=== PATIENT | male | born 1965 | race Caucasian/White ===

== ENCOUNTER 2020-03-03 14:02 | Inpatient (IN) ==
[2020-03-03] MEDS ORDERED: Isovue-370 500 ML BOTTLE IVP ONE (15:47)
[2020-03-03 15:57] LABS: Bilirubin,Urine Negative (Negative); Blood,Urine Negative (Negative); Clarity,Urine Clear (Clear); Color,Urine Yellow (Yellow); Glucose,Urine (UA) Normal (Normal); Ketones,Urine Negative (Negative); Leukocyte Esterase,Urine Negative (Negative); Nitrite,Urine Negative (Negative); Protein,Urine Negative (Neg-Trace); Specific Gravity,Urine 1.016 (1.010-1.025); Urobilinogen,Urine Normal (Normal)
[2020-03-03 16:00] LABS: INR 1.1; Prothrombin Time 12.6 Seconds (9.4-12.1)
[2020-03-03 16:03] LABS: Activated Partial Thrombo Time 38.6 Seconds (26.0-36.0); Basophils % 0.5 %; Eosinophils # 0.2 K/mcL (0.0-0.6); Eosinophils % 3.2 %; Hematocrit 39.1 % (37.5-50.1); Hemoglobin 11.6 g/dL (12.9-16.9); Immature Granulocytes % 0.4 % (0-4); Lymphocytes # 1.7 K/mcL (0.6-4.6); Lymphocytes % 23.4 %; Mean Corpuscular HGB Conc 29.7 g/dL (31.6-35.5); Mean Corpuscular Hemoglobin 23.5 pg (28.0-33.3); Mean Corpuscular Volume 79.1 fL (83.0-100.0); Mean Platelet Volume 9.6 fL (9.4-12.4); Monocytes # 0.8 K/mcL (0.0-1.3); Monocytes % 10.7 %; Neutrophils # 4.5 K/mcL (1.6-8.9); Platelet Count 367 K/mcL (140-400); Red Blood Count 4.94 M/mcL (4.19-5.50); Red Cell Distribution Width 21.3 % (11.5-14.5); Segmented Neutrophils % 61.8 %; White Blood Count 7.3 K/mcL (4.3-11.1)
[2020-03-03 16:17] LABS: Alanine Aminotransferase 22 Units/L (7-52); Albumin 3.9 g/dL (3.5-5.7); Albumin/Globulin Ratio 1.3 (1.1-2.2); Alkaline Phosphatase 63 Units/L (34-104); Aspartate Amino Transferase 23 Units/L (13-39); BUN/Creatinine Ratio 15 (6-26); Bilirubin,Direct 0.1 mg/dL (0.0-0.2); Bilirubin,Indirect 0.2 mg/dL (0.0-1.0); Bilirubin,Total 0.3 mg/dL (0.3-1.0); Blood Urea Nitrogen 14 mg/dL (6-20); Calcium 9.2 mg/dL (8.6-10.3); Carbon Dioxide 30 mEq/L (23-29); Chloride 104 mEq/L (98-107); Glucose 99 mg/dL (70-105); Lipase 29 Units/L (11-82); Osmolality,Calculated 289 (280-300); Sodium 139 mEq/L (136-145); Total Protein 6.9 g/dL (6.4-8.9); eGFR For African Americans > 60 (> 60); eGFR For Non-African Americans > 60 (> 60)
[2020-03-03] MEDS ORDERED: Ondansetron 4 MG/2 ML VIAL IVP PRN ×2 (19:36→21:10)
[2020-03-03] MEDS ORDERED: 0.9 % Sodium Chloride 1,000 ML IVC SCH ×2 (19:45→21:10)
[2020-03-03] MEDS ORDERED: *HR* OxyCODONE Immed Rel 5 MG TABLET PO PRN (21:11)
[2020-03-03] MEDS ORDERED: Ondansetron 4 MG/2 ML VIAL IVP ONE (21:11)
[2020-03-03] MEDS ORDERED: *HR* Promethazine 25 MG/ML VIAL IVP PRN (21:11)
[2020-03-03] MEDS ORDERED: CeFAZolin Syr 3,000MG/30 ML 3,000 MG/30 ML SYRINGE IVPB ONE (21:33)
[2020-03-03] MEDS ORDERED: *HR* Heparin 5,000 UNIT/ML VIAL SQ SCH (22:00)
[2020-03-03] MEDS ORDERED: *HR* FentaNYL (PF) 100 MCG/2 ML VIAL ONE (22:01)
[2020-03-03] MEDS ORDERED: *HR* Propofol 200 MG/20 ML VIAL IVP ONE (22:02)
[2020-03-03] MEDS ORDERED: *HR* Succinylcholine 200 MG/10 ML VIAL IVP ONE (22:03)
[2020-03-03] MEDS ORDERED: Lidocaine -MPF 2% 2 ML VIAL ONE (22:03)
[2020-03-03] MEDS ORDERED: *HR* Rocuronium Bromide 50 MG/5 ML VIAL ONE ×2 (22:03→23:57)
[2020-03-03] MEDS ORDERED: Dexamethasone 4 MG/ML VIAL ONE (22:03)
[2020-03-03] MEDS ORDERED: Ondansetron 4 MG/2 ML VIAL ONE (22:03)
[2020-03-03] MEDS ORDERED: Ketorolac 30 MG/ML VIAL ONE (22:04)
[2020-03-03] MEDS ORDERED: *HR* Metoprolol 5 MG/5 ML VIAL IVP ONE (22:42)
[2020-03-04] MEDS ORDERED: CeFAZolin Syr 3,000MG/30 ML 3,000 MG/30 ML SYRINGE IVPB SCH ×2
[2020-03-04] MEDS: *HR* HYDROmorphone PF 0.5 MG/0.5 ML SYRINGE IVP PRN ×2 (01:49→02:00)
[2020-03-04] MEDS ORDERED: Ondansetron 4 MG/2 ML VIAL IVP ONE (02:25)
[2020-03-04] MEDS ORDERED: *HR* HYDROmorphone PF 0.5 MG/0.5 ML SYRINGE IVP PRN (02:25)
[2020-03-04] MEDS ORDERED: *HR* OxyCODONE Immed Rel 5 MG TABLET PO PRN (02:25)
[2020-03-04] MEDS ORDERED: *HR* Promethazine 25 MG/ML VIAL IVP PRN (02:25)
[2020-03-04] MEDS: Ondansetron 4 MG/2 ML VIAL IVP PRN (02:57)
[2020-03-04] MEDS: 0.9 % Sodium Chloride 1,000 ML IVC SCH ×3 (02:57→21:49)
[2020-03-04] MEDS: Famotidine 20 MG/2 ML VIAL IVP SCH ×2 (05:22→17:54)
[2020-03-04] MEDS ORDERED: Famotidine 20 MG/2 ML VIAL IVP SCH ×2 (06:00)
[2020-03-04] MEDS: ceFAZolin 3,000 MG in 0.9 % Sodium Chloride 100 ML IVPB SCH ×2 (06:29→16:00)
[2020-03-04 07:01] LABS: Mean Corpuscular Volume 79.9 fL (83.0-100.0); Mean Platelet Volume 9.4 fL (9.4-12.4); Platelet Count 331 K/mcL (140-400); Red Blood Count 4.13 M/mcL (4.19-5.50); Red Cell Distribution Width 20.6 % (11.5-14.5)
[2020-03-04 07:02] LABS: Hemoglobin 9.9 g/dL (12.9-16.9); White Blood Count 12.4 K/mcL (4.3-11.1)
[2020-03-04 07:18] LABS: BUN/Creatinine Ratio 17 (6-26); Blood Urea Nitrogen 17 mg/dL (6-20); Calcium 8.4 mg/dL (8.6-10.3); Carbon Dioxide 28 mEq/L (23-29); Chloride 104 mEq/L (98-107); Glucose 151 mg/dL (70-105); Osmolality,Calculated 290 (280-300); Potassium 4.5 mEq/L (3.5-5.1); Sodium 138 mEq/L (136-145); eGFR For African Americans > 60 (> 60); eGFR For Non-African Americans > 60 (> 60)
[2020-03-04] MEDS: Morphine Sulfate 2 MG/ML SYRINGE IVP PRN ×2 (08:58→23:35)
[2020-03-04] MEDS: *HR* Metoprolol 5 MG/5 ML VIAL IVP SCH ×2 (12:30→17:54)
[2020-03-04] MEDS: *HR* Heparin 5,000 UNIT/ML VIAL SQ SCH ×2 (16:02→21:48)
[2020-03-05] MEDS: *HR* Metoprolol 5 MG/5 ML VIAL IVP SCH ×4 (00:02→18:27)
[2020-03-05] MEDS: Famotidine 20 MG/2 ML VIAL IVP SCH ×2 (05:44→18:27)
[2020-03-05] MEDS: *HR* Heparin 5,000 UNIT/ML VIAL SQ SCH ×3 (05:44→20:35)
[2020-03-05] MEDS: Morphine Sulfate 2 MG/ML SYRINGE IVP PRN ×3 (05:59→14:03)
[2020-03-05 07:35] LABS: Basophils % 0.2 %; Hemoglobin 10.4 g/dL (12.9-16.9); Immature Granulocytes % 0.5 % (0-4); Lymphocytes % 6.8 %; Mean Corpuscular HGB Conc 29.7 g/dL (31.6-35.5); Mean Corpuscular Hemoglobin 23.8 pg (28.0-33.3); Mean Corpuscular Volume 80.1 fL (83.0-100.0); Mean Platelet Volume 9.8 fL (9.4-12.4); Monocytes # 1.5 K/mcL (0.0-1.3); Monocytes % 11.1 %; Neutrophils # 11.3 K/mcL (1.6-8.9); Platelet Count 402 K/mcL (140-400); Red Blood Count 4.37 M/mcL (4.19-5.50); Red Cell Distribution Width 20.8 % (11.5-14.5); Segmented Neutrophils % 81.4 %; White Blood Count 13.9 K/mcL (4.3-11.1)
[2020-03-05 07:59] LABS: BUN/Creatinine Ratio 23 (6-26); Blood Urea Nitrogen 22 mg/dL (6-20); Calcium 8.3 mg/dL (8.6-10.3); Carbon Dioxide 24 mEq/L (23-29); Chloride 104 mEq/L (98-107); Glucose 146 mg/dL (70-105); Osmolality,Calculated 288 (280-300); Potassium 4.1 mEq/L (3.5-5.1); Sodium 136 mEq/L (136-145); eGFR For African Americans > 60 (> 60); eGFR For Non-African Americans > 60 (> 60)
[2020-03-05 08:07] LABS: Anisocytosis 1+ (Not Present); Platelet Estimate Normal (Normal)
[2020-03-05] MEDS: 0.9 % Sodium Chloride 1,000 ML IVC SCH ×2 (08:18→18:30)
[2020-03-05] MEDS: Ondansetron 4 MG/2 ML VIAL IVP PRN (14:03)
[2020-03-05] MEDS: Ketorolac 30 MG/ML VIAL IVP PRN (20:35)
[2020-03-06] MEDS: Acetaminophen IV 1,000 MG/100 ML INFUS..BTL IVPB SCH ×4 (00:09→17:58)
[2020-03-06 02:54] LABS: Basophils % 0.1 %; Eosinophils % 0.2 %; Hematocrit 33.1 % (37.5-50.1); Hemoglobin 9.6 g/dL (12.9-16.9); Immature Granulocytes % 0.4 % (0-4); Lymphocytes # 0.9 K/mcL (0.6-4.6); Lymphocytes % 7.5 %; Mean Corpuscular Hemoglobin 23.4 pg (28.0-33.3); Mean Corpuscular Volume 80.7 fL (83.0-100.0); Mean Platelet Volume 9.7 fL (9.4-12.4); Monocytes # 0.9 K/mcL (0.0-1.3); Monocytes % 7.5 %; Neutrophils # 9.7 K/mcL (1.6-8.9); Platelet Count 375 K/mcL (140-400); Red Cell Distribution Width 20.1 % (11.5-14.5); Segmented Neutrophils % 84.3 %; White Blood Count 11.5 K/mcL (4.3-11.1)
[2020-03-06 03:11] LABS: BUN/Creatinine Ratio 25 (6-26); Blood Urea Nitrogen 28 mg/dL (6-20); Calcium 8.5 mg/dL (8.6-10.3); Carbon Dioxide 24 mEq/L (23-29); Chloride 103 mEq/L (98-107); Glucose 119 mg/dL (70-105); Osmolality,Calculated 289 (280-300); Potassium 4.3 mEq/L (3.5-5.1); Sodium 136 mEq/L (136-145); eGFR For African Americans > 60 (> 60); eGFR For Non-African Americans > 60 (> 60)
[2020-03-06 03:12] LABS: Platelet Estimate Normal (Normal); Polychromasia 1+ (Not Present)
[2020-03-06] MEDS: Ketorolac 30 MG/ML VIAL IVP PRN (03:30)
[2020-03-06] MEDS: *HR* Heparin 5,000 UNIT/ML VIAL SQ SCH ×3 (05:09→22:04)
[2020-03-06] MEDS: Famotidine 20 MG/2 ML VIAL IVP SCH (05:10)
[2020-03-06] MEDS: 0.9 % Sodium Chloride 1,000 ML IVC SCH ×2 (05:11→22:00)
[2020-03-06] MEDS: amLODIPine 5 MG TABLET PO SCH (08:59)
[2020-03-06] MEDS ORDERED: amLODIPine 5 MG TABLET PO SCH (09:00)
[2020-03-06] MEDS: Famotidine 20 MG TABLET PO SCH (22:03)
[2020-03-07] MEDS: Ondansetron 4 MG/2 ML VIAL IVP PRN (00:47)
[2020-03-07] MEDS: Acetaminophen IV 1,000 MG/100 ML INFUS..BTL IVPB SCH ×2 (00:47→06:28)
[2020-03-07] MEDS: Ipratropium/Albuterol Neb 3 ML IH PRN ×5 (01:04→21:25)
[2020-03-07] MEDS: Morphine Sulfate 2 MG/ML SYRINGE IVP PRN ×4 (03:23→20:10)
[2020-03-07 04:18] LABS: Basophils % 0.2 %; Eosinophils # 0.2 K/mcL (0.0-0.6); Eosinophils % 2.1 %; Hematocrit 30.7 % (37.5-50.1); Immature Granulocytes % 0.2 % (0-4); Lymphocytes # 0.9 K/mcL (0.6-4.6); Lymphocytes % 9.7 %; Mean Corpuscular HGB Conc 29.3 g/dL (31.6-35.5); Mean Corpuscular Hemoglobin 23.9 pg (28.0-33.3); Mean Corpuscular Volume 81.6 fL (83.0-100.0); Mean Platelet Volume 9.6 fL (9.4-12.4); Monocytes # 1.1 K/mcL (0.0-1.3); Monocytes % 11.9 %; Neutrophils # 7.1 K/mcL (1.6-8.9); Platelet Count 358 K/mcL (140-400); Red Blood Count 3.76 M/mcL (4.19-5.50); Red Cell Distribution Width 19.9 % (11.5-14.5); Segmented Neutrophils % 75.9 %; White Blood Count 9.3 K/mcL (4.3-11.1)
[2020-03-07 04:39] LABS: BUN/Creatinine Ratio 37 (6-26); Blood Urea Nitrogen 31 mg/dL (6-20); Calcium 8.3 mg/dL (8.6-10.3); Carbon Dioxide 27 mEq/L (23-29); Chloride 104 mEq/L (98-107); Glucose 113 mg/dL (70-105); Osmolality,Calculated 289 (280-300); Potassium 4.1 mEq/L (3.5-5.1); Sodium 136 mEq/L (136-145); eGFR For African Americans > 60 (> 60); eGFR For Non-African Americans > 60 (> 60)
[2020-03-07 04:48] LABS: Hypochromasia Present (Not Present)
[2020-03-07 04:49] LABS: Anisocytosis 1+ (Not Present); Platelet Estimate Normal (Normal)
[2020-03-07] MEDS: *HR* Heparin 5,000 UNIT/ML VIAL SQ SCH ×3 (06:28→23:03)
[2020-03-07] MEDS: amLODIPine 5 MG TABLET PO SCH (08:03)
[2020-03-07] MEDS: Famotidine 20 MG TABLET PO SCH ×2 (08:03→20:09)
[2020-03-07] MEDS: 0.9 % Sodium Chloride 1,000 ML IVC SCH ×3 (10:06→20:33)
[2020-03-07] MEDS: ceFAZolin 3,000 MG in 0.9 % Sodium Chloride 100 ML IVPB SCH ×2 (11:47→18:34)
[2020-03-07] MEDS: Ketorolac 30 MG/ML VIAL IVP PRN (19:10)
[2020-03-08] MEDS: ceFAZolin 3,000 MG in 0.9 % Sodium Chloride 100 ML IVPB SCH ×3 (03:06→17:55)
[2020-03-08] MEDS: Morphine Sulfate 2 MG/ML SYRINGE IVP PRN (03:12)
[2020-03-08] MEDS: 0.9 % Sodium Chloride 1,000 ML IVC SCH ×2 (05:41→16:16)
[2020-03-08] MEDS: *HR* Heparin 5,000 UNIT/ML VIAL SQ SCH ×3 (05:42→20:20)
[2020-03-08] MEDS: Ipratropium/Albuterol Neb 3 ML IH PRN ×2 (05:46→15:49)
[2020-03-08 05:52] LABS: Mean Platelet Volume 9.3 fL (9.4-12.4); Nucleated Red Blood Cells 0.2 /100 WBC (0)
[2020-03-08 05:54] LABS: Basophils % 0.4 %; Eosinophils # 0.4 K/mcL (0.0-0.6); Eosinophils % 3.8 %; Hematocrit 31.3 % (37.5-50.1); Hemoglobin 9.2 g/dL (12.9-16.9); Immature Granulocytes % 1.1 % (0-4); Lymphocytes # 1.4 K/mcL (0.6-4.6); Lymphocytes % 12.4 %; Mean Corpuscular HGB Conc 29.4 g/dL (31.6-35.5); Mean Corpuscular Volume 81.5 fL (83.0-100.0); Monocytes # 1.6 K/mcL (0.0-1.3); Monocytes % 14.4 %; Platelet Count 409 K/mcL (140-400); Red Blood Count 3.84 M/mcL (4.19-5.50); Red Cell Distribution Width 19.9 % (11.5-14.5); Segmented Neutrophils % 67.9 %; White Blood Count 11.1 K/mcL (4.3-11.1)
[2020-03-08 05:56] LABS: Neutrophils # 7.5 K/mcL (1.6-8.9)
[2020-03-08 06:13] LABS: BUN/Creatinine Ratio 30 (6-26); Blood Urea Nitrogen 26 mg/dL (6-20); Calcium 8.4 mg/dL (8.6-10.3); Carbon Dioxide 28 mEq/L (23-29); Chloride 103 mEq/L (98-107); Glucose 117 mg/dL (70-105); Osmolality,Calculated 296 (280-300); Potassium 3.9 mEq/L (3.5-5.1); Sodium 140 mEq/L (136-145); eGFR For African Americans > 60 (> 60); eGFR For Non-African Americans > 60 (> 60)
[2020-03-08 06:17] LABS: Anisocytosis 2+ (Not Present); Polychromasia 1+ (Not Present)
[2020-03-08] MEDS: amLODIPine 5 MG TABLET PO SCH (07:53)
[2020-03-08] MEDS: Famotidine 20 MG TABLET PO SCH ×2 (07:53→20:17)
[2020-03-08] MEDS: Ketorolac 30 MG/ML VIAL IVP PRN ×2 (11:55→17:55)
[2020-03-09] MEDS: 0.9 % Sodium Chloride 1,000 ML IVC SCH (02:05)
[2020-03-09] MEDS: ceFAZolin 3,000 MG in 0.9 % Sodium Chloride 100 ML IVPB SCH ×2 (02:06→12:01)
[2020-03-09] MEDS: *HR* Heparin 5,000 UNIT/ML VIAL SQ SCH (04:59)
[2020-03-09] MEDS: Ketorolac 30 MG/ML VIAL IVP PRN (07:32)
[2020-03-09] MEDS ORDERED: Furosemide 40 MG/4 ML VIAL IVP ONE (08:31)
[2020-03-09] MEDS: amLODIPine 5 MG TABLET PO SCH (09:26)
[2020-03-09] MEDS: Famotidine 20 MG TABLET PO SCH (09:26)
[2020-03-09] MEDS ORDERED: *HR* OxyCODONE/APAP 5/325 TABLET PO PRN (09:57)
[2020-03-09] MEDS ORDERED: Ibuprofen 800 MG TABLET PO SCH (09:57)
[2020-03-09 10:16] VITALS: BP 167/84
[2020-03-09] MEDS ORDERED: polyethylene glycoL 3350 17 GM POWD.PACK PO SCH (10:30)
[2020-03-09] MEDS ORDERED: *HR* FentaNYL (PF) 100 MCG/2 ML VIAL ONE (12:05)
[2020-03-09] MEDS ORDERED: *HR* Midazolam HCl 5 MG/5 ML VIAL IVP ONE (12:05)
== END 2020-03-09 16:18 | disposition home or self-care (01) | DRG 354 ==
LOC: EMEROOARM 14:02 → 3ANU 14:02
PROVIDERS: ADMIT Surgery; ATTEND Surgery